=== PATIENT | male | born 1990 | race Two or more races ===

== ENCOUNTER 2025-07-30 12:48 | Inpatient (IN) | payer OTHER ==
[~2025-07-30] VITALS: Ht 177.8 cm; Wt 84.8 kg
[~2025-07-30 12:48] MED LIST: DEXAMETHASONE SOD PHOS 4 MG/ML VIAL ONE; FentaNYL CITRATE PF 100 MCG/2 ML VIAL ONE; LIDOCAINE/PF 2% 5 ML SYRINGE IVP ONE; MIDAZOLAM HCL 2 MG/2 ML VIAL ONE; MORPHINE SULFATE 10 MG/ML VIAL ONE; PROPOFOL 1% 20 ML VIAL IVP ONE; ROCURONIUM BROMIDE 10 MG/ML 5 ML VIAL ONE; SUGAMMADEX SODIUM 200 MG/2 ML VIAL IVP ONE
[2025-07-30] MEDS ORDERED: SUGAMMADEX SODIUM 200 MG/2 ML VIAL IVP ONE (12:54)
[2025-07-30] MEDS ORDERED: PROPOFOL 1% 20 ML VIAL IVP ONE (12:54)
[2025-07-30] MEDS ORDERED: ROCURONIUM BROMIDE 10 MG/ML 5 ML VIAL ONE (12:54)
[2025-07-30] MEDS ORDERED: LIDOCAINE/PF 2% 5 ML SYRINGE IVP ONE (12:54)
[2025-07-30] MEDS ORDERED: ONDANSETRON HCL 4 MG/2 ML VIAL ONE (12:54)
[2025-07-30] MEDS ORDERED: DEXAMETHASONE SOD PHOS 4 MG/ML VIAL ONE (12:54)
[2025-07-30 14:38] LABS: PLATELET COUNT (AUTO) 233 K/uL (150-450); RED BLOOD CELL COUNT(AUTO) 4.50 MIL/uL (4.50-5.90); RED CELL DISTRIBUTION WIDTH 13.0 % (11.5-14.5); WHITE BLOOD COUNT (AUTO) 11.8 K/uL (4.5-11.0)
[2025-07-30 14:40] LABS: CALCIUM, TOTAL 8.1 mg/dL (8.8-10.5); CREATININE 0.97 mg/dL (0.60-1.30); GLOMERULAR FILTR. RATE CALC > 60 mL/min (>60); GLUCOSE,RANDOM 91 mg/dL (70-110); SODIUM SERUM 137 mmol/L (136-145); UREA NITROGEN, BLOOD 10 mg/dL (7-18)
[2025-07-30] MEDS ORDERED: 0.9% SODIUM CHLORIDE 10 ML SYRINGE IVP ONE (14:45)
[2025-07-30] MEDS ORDERED: IOHEXOL 350 MG/ML 100 ML VIAL ONE (14:45)
[2025-07-30] MEDS ORDERED: SODIUM CHLORIDE 0.9% 100 ML ONE (14:45)
[2025-07-30 14:58] LABS: ASPARTATE AMINOTRANSFERASE 17.0 U/L (15-37); TOTAL PROTEIN, SERUM 7.0 g/dL (6.4-8.2)
[2025-07-30] MEDS: KETOROLAC TROMETHAMINE 30 MG/ML VIAL IVP ONE (15:04)
[2025-07-30] MEDS: SODIUM CHLORIDE 0.9% 1,000 ML IV ONE (15:04)
[2025-07-30] MEDS: FAMOTIDINE 20 MG/2 ML VIAL IVP ONE (15:04)
[2025-07-30] MEDS: MAG HYDROX/ALUMINUM HYD/SIMETH 30 ML SUSPENSION UDCUP PO ONE (15:05)
[2025-07-30] MEDS: ONDANSETRON HCL 4 MG/2 ML VIAL IVP ONE (15:05)
[2025-07-30] MEDS: PIPERACILLIN/TAZO 3.375 GM/D5W 50 ML IV ONE (16:32)
[2025-07-30] MEDS ORDERED: RINGERS SOLUTION,LACTATED 1,000 ML IV ONE (17:36)
[2025-07-30] MEDS ORDERED: FentaNYL CITRATE PF 100 MCG/2 ML VIAL IVP PRN (18:30)
[2025-07-30] MEDS ORDERED: MEPERIDINE-PF 25 MG/ML VIAL IVP PRN (18:30)
[2025-07-30] MEDS: BUPIVACAINE 0.25%/EPI 1:200,000/PF 30 ML VIAL ONE (18:35)
[2025-07-30] MEDS ORDERED: OxyCODONE HCL 5 MG IR TABLET PO PRN (18:45)
[2025-07-30] MEDS ORDERED: ONDANSETRON HCL 4 MG/2 ML VIAL IVP PRN (19:00)
[2025-07-30] MEDS ORDERED: ZOLPIDEM TARTRATE 5 MG TABLET PO PRN (19:00)
[2025-07-30] MEDS ORDERED: MORPHINE SULFATE 4 MG/ML SYRINGE IVP PRN (19:00)
[2025-07-30] MEDS ORDERED: BISACODYL 10 MG RECTAL RECTAL SUPPOSITORY PR PRN (19:00)
[2025-07-30] MEDS ORDERED: MAGNESIUM HYDROXIDE SUSPENSION 30 ML UDCUP PO PRN (19:00)
[2025-07-30] MEDS ORDERED: HYDROCODONE/ACETAMINOPHEN 5-325 MG TABLET PO PRN (19:00)
[2025-07-30] MEDS: OXYGEN THERAPY IH SCH (20:00)
[2025-07-30 20:38] VITALS: BP 103/71; PULSE 70; RESP 20; TEMP 98.4; O2SAT 94
[2025-07-30] MEDS ORDERED: IBUPROFEN 600 MG TABLET PO SCH (21:00)
[2025-07-30] MEDS ORDERED: SODIUM CHLORIDE 0.9% 250 ML IV ONE (22:12)
[2025-07-30] MEDS: ACETAMINOPHEN 500 MG TABLET PO SCH (22:40)
[2025-07-30] MEDS: DOCUSATE SODIUM 100 MG CAPSULE PO SCH (22:40)
[2025-07-30] MEDS: PIPERACILLIN/TAZO 3.375 GM/D5W 50 ML IV SCH (22:40)
[2025-07-30] MEDS: HEPARIN SODIUM,PORCINE 5,000 UNITS/ML VIAL SQ SCH (22:41)
[2025-07-31 04:47] VITALS: BP 109/70; PULSE 68; RESP 18; TEMP 98.1; O2SAT 100
[2025-07-31 07:28] LABS: PLATELET COUNT (AUTO) 223 K/uL (150-450); RED BLOOD CELL COUNT(AUTO) 4.31 MIL/uL (4.50-5.90); RED CELL DISTRIBUTION WIDTH 13.0 % (11.5-14.5); WHITE BLOOD COUNT (AUTO) 9.7 K/uL (4.5-11.0)
[2025-07-31 07:33] LABS: CALCIUM, TOTAL 8.3 mg/dL (8.8-10.5); CREATININE 0.87 mg/dL (0.60-1.30); GLOMERULAR FILTR. RATE CALC > 60 mL/min (>60); GLUCOSE,RANDOM 107 mg/dL (70-110); SODIUM SERUM 141 mmol/L (136-145); UREA NITROGEN, BLOOD 9 mg/dL (7-18)
[2025-07-31 08:10] VITALS: BP 122/80; PULSE 55; RESP 18; TEMP 98.3; O2SAT 99
[2025-07-31] MEDS: PANTOPRAZOLE SODIUM 40 MG DR TABLET PO SCH (08:33)
[2025-07-31] MEDS: IBUPROFEN 400 MG TABLET PO SCH (08:33)
[2025-07-31] MEDS: ACETAMINOPHEN 325 MG TABLET PO PRN (08:33)
[2025-07-31 16:33] VITALS: BP 111/67; PULSE 76; RESP 18; TEMP 98.1; O2SAT 100
[2025-07-31 20:00] VITALS: BP 111/77; PULSE 67; RESP 18; TEMP 98.4; O2SAT 100
[2025-08-01 04:00] VITALS: BP 110/80; PULSE 62; RESP 18; TEMP 97.9; O2SAT 99
[2025-08-01 06:35] LABS: PLATELET COUNT (AUTO) 210 K/uL (150-450); RED BLOOD CELL COUNT(AUTO) 4.34 MIL/uL (4.50-5.90); RED CELL DISTRIBUTION WIDTH 13.6 % (11.5-14.5); WHITE BLOOD COUNT (AUTO) 6.4 K/uL (4.5-11.0)
[2025-08-01 06:54] LABS: CALCIUM, TOTAL 8.1 mg/dL (8.8-10.5); CREATININE 1.11 mg/dL (0.60-1.30); GLOMERULAR FILTR. RATE CALC > 60 mL/min (>60); GLUCOSE,RANDOM 93 mg/dL (70-110); SODIUM SERUM 139 mmol/L (136-145); UREA NITROGEN, BLOOD 13 mg/dL (7-18)
[2025-08-01 09:02] VITALS: BP 117/68; PULSE 67; RESP 18; TEMP 98.2; O2SAT 99
[2025-08-01] MEDS ORDERED: ACET-3385 PO (12:37)
[2025-08-01] MEDS: INFLUENZA VIRUS VACCINE TVS (6MO+) 2025-26/PF 45 MCG/0.5 ML SYRINGE IM. ONE (13:56)
== END 2025-08-01 14:15 | disposition home or self-care (01) | DRG 399 ==
LOC: EMS 12:57 → EDH 17:39 → 4E 20:30
PROVIDERS: ADMIT Internal Medicine; ATTEND Internal Medicine
PROC: 0DTJ4ZZ Resection of Appendix, Percutaneous Endoscopic Approach (ICD-10-PCS; principal; 2025-07-30 18:20)
DX: K35.30 Acute appendicitis with localized peritonitis, without perforation or gangrene (principal); F17.210 Nicotine dependence, cigarettes, uncomplicated; D72.829 Elevated white blood cell count, unspecified; E80.6 Other disorders of bilirubin metabolism
CPT/HCPCS: 74177; 76705; 80048; 80076; 83690; 85025; 87081; 90686; 99285; G0378; J1100; J1644; J1885; J2250; J2270; J2405; J2543; J2704; J3010; J3490; J7030; J7050; J7120